=== PATIENT | female | born 1940 | race Caucasian/White ===

== ENCOUNTER 2018-02-07 17:16 | Emergency (ER) | payer OTHER ==
[2018-02-07] MEDS ORDERED: methylPREDNISolone SOD SUCC 125 MG/2 ML VIAL IVP ONE (17:24)
[2018-02-07] MEDS ORDERED: EPINEPHrine 1 MG/ML INJ IM ONE (17:24)
[2018-02-07] MEDS ORDERED: RANITIDINE 50 MG/2 ML VIAL IVP ONE (17:24)
[2018-02-07] MEDS ORDERED: NS 1,000 ML IV ONE ×2 (17:24→18:13)
[2018-02-07] MEDS ORDERED: ALBUTEROL 3 ML DEYVIAL IH ONE (17:30)
--- NOTE | 2018-02-07 17:40 | EDPHY ---
H & P Time Seen by Provider: 02/07/18 17:19 HPI/ROS: CHIEF COMPLAINT: Lightheaded HISTORY OF PRESENT ILLNESS: The patient is a 77-year-old female who comes to the emergency department via EMS for feeling lightheaded and vision changes. She reports seeing her primary doctor today for dysuria and being diagnosed with a urinary tract infection. Her states that she gets these every month or so. She was given a prescription for Macrobid. She took the 1st pill this evening at about 45 min later began feeling lightheaded. No headache. No nausea vomiting. No chest pain or shortness of breath. She felt very weak. Her called 911. When they arrived she was hypotensive. She has mild diffuse erythema. She has not had a fever recently. No back pain. She denies history of cardiac disease. 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: Severe Modifying factors: None REVIEW OF SYSTEMS: Constitutional: See HPI EENTM: denies: blurred vision, double vision, nose congestion Respiratory: denies: cough, shortness of breath Cardiac: denies: chest pain, irregular heart rate, lightheadedness, palpitations Gastrointestinal/Abdominal: denies: abdominal pain, diarrhea, nausea, vomiting, blood streaked stools Genitourinary: see HPI Musculoskeletal: denies: joint pain, muscle pain Skin: denies: lesions, rash, jaundice, bruising Neurological: denies: headache, numbness, paresthesia, tingling, dizziness, weakness Hematologic/Lymphatic: denies: blood clots, easy bleeding, easy bruising Immunologic/allergic: denies: HIV/AIDS, transplant 10 systems reviewed and negative except as noted EXAM: GENERAL: Hypotensive, in distress, HEAD: Atraumatic, normocephalic. EYES: Pupils equal round and reactive to light, extraocular movements intact, sclera anicteric, conjunctiva are normal. ENT: TMs normal, nares patent, oropharynx clear without exudates. Moist mucous membranes. NECK: Normal range of motion, supple without lymphadenopathy or JVD. LUNGS: Breath sounds clear to auscultation bilaterally and equal. No wheezes rales or rhonchi. HEART: Regular rate and rhythm without murmurs, rubs or gallops. ABDOMEN: Soft, nontender, normoactive bowel sounds. No guarding, no rebound. No masses appreciated. BACK: No CVA tenderness, no spinal tenderness, step-offs or deformities EXTREMITIES: Normal range of motion, no pitting or edema. No clubbing or cyanosis. NEUROLOGICAL: Cranial nerves II through XII grossly intact. Normal speech. 5/ 5 strength, normal movement in all extremities, normal sensation, normal reflexes PSYCH: Normal mood, normal affect. SKIN: Diffuse sandpapery erythema. No urticaria. Source: Patient, Family, EMS Exam Limitations: Clinical condition - Medical/Surgical History Hx Asthma: No Hx Chronic Respiratory Disease: No Hx Diabetes: No Hx Cardiac Disease: No Hx Renal Disease: No Hx Cirrhosis: No Hx Alcoholism: No Hx HIV/AIDS: No - Family History Significant Family History: No pertinent family hx - Social History Smoking Status: Never smoked Alcohol Use: None Drug Use: None Constitutional: Initial Vital Signs Temperature (C) 36.3 C 02/07/18 17:40 Heart Rate 75 02/07/18 17:40 Respiratory Rate 16 02/07/18 17:40 Blood Pressure 65/49 L 02/07/18 17:40 O2 Sat (%) 85 L 02/07/18 17:40 O2 Delivery Mode Room Air O2 (L/minute) 1 Allergies/Adverse Reactions: No Known Drug Allergies Allergy (Verified 02/07/18 17:46) Home Medications: Medication Instructions Recorded Aspirin 325 mg (*) 02/07/18 Cephalexin [Keflex] 500 mg PO TID #21 cap 02/07/18 EPINEPHrine [Epipen 0.3 MG] 0.3 mg IM ONCE #2 syr 02/07/18 predniSONE 60 mg PO DAILY #9 tab 02/07/18 Medical Decision Making - Diagnostics EKG Interpretation: An EKG obtained and was read and documented in trace view. Please see trace view for full reading and report. Sinus rhythm, no acute ischemic changes Imaging Results: Imaging Impressions Chest X-Ray 02/07/18 17:25 Impression: Mild peribronchial thickening could reflect airways disease. A definite fever source is not identified. Imaging: Discussed imaging studies w/ call worker Radiologist ED Course/Re-evaluation: 5:45 p.m. the patient's blood pressure is improving. Her redness is resolving particularly in her face and abdomen. She states she feels less lightheaded. Her oxygen has improved after a nebulizer. We will continue to observe. 6:15 p.m. the patient's vital signs have normalized. She is feeling completely better. We will continue to observe. 750 p.m.. The patient is doing well. She has been ambulating to the bathroom. She feels much better and is eager to go home. I told her I would like to observe her for had little longer. I also will need to start her on a different antibiotic. We are calling the pharmacy to see which antibiotics she has done well with in the past. She states that antibiotics usually work for her and she has never had 1 that does not work. She has never had any previous allergies. 8:20 p.m. patient continues to feel well. We spoke with [facility]. She has had Bactrim and amoxicillin in the past without difficulty. Will treat her with Keflex now and observe. 9:00 p.m. the patient is doing well. She has no complaints. She and her are eager to go home. She has done well with the Keflex. I will give her prescription for this as well as 1 to take in the morning. We discussed continuation of steroids and antihistamines as well as use of EpiPen if necessary. Differential Diagnosis: Partial list of the Differential diagnosis considered include but were not limited to; anaphylaxis, urinary tract infection, sepsis and although unlikely based on the history and physical exam, I also considered acute coronary disease , arrhythmia, seizure, stroke. I discussed these differential diagnoses and the plan with the patient as well as the usual and expected course. The patient understands that the diagnosis is provisional and that in medicine we are not always correct and that further workup is often warranted. Usual and customary warnings were given. All of the patient's questions were answered. The patient was instructed to return to the emergency department should the symptoms at all worsen or return, otherwise to followup with the physician as we discussed. - Data Points Laboratory Results: Laboratory Results 02/07/18 17:44 02/07/18 17:44 02/07/18 02/07/18 02/07/18 19:30 17:44 17:44 WBC RBC Hgb Hct MCV MCH MCHC RDW Plt Count MPV Neut % (Auto) Lymph % (Auto) [place] % (Auto) Eos % (Auto) Baso % (Auto) Nucleat RBC Rel Count Absolute Neuts (auto) Absolute Lymphs (auto) Absolute Monos (auto) Absolute Eos (auto) Absolute Basos (auto) Absolute Nucleated RBC Immature Gran % Immature Gran # PT INR APTT VBG Lactic Acid 1.5 mmol/L mmol/L (0.7-2.1) Sodium 136 mEq/L mEq/L (135-145) Potassium 3.5 mEq/L mEq/L (3.3-5.0) Chloride 107 mEq/L mEq/L (97-110) Carbon Dioxide 23 mEq/l mEq/l (22-31) Anion Gap 6 mEq/L mEq/L (6-14) BUN 13 mg/dL mg/dL (7-23) Creatinine 0.8 mg/dL mg/dL (0.6-1.0) Estimated GFR > 60 Glucose 121 mg/dL H mg/dL (70-100) Calcium 8.3 mg/dL L mg/dL (8.5-10.4) Total Bilirubin 0.3 mg/dL mg/dL (0.1-1.4) Urine Color YELLOW Urine Appearance MODERATELY TURBID Urine pH 6.0 (5.0-7.5) Ur Specific [place] 1.008 (1.002-1.030) Urine Protein NEGATIVE (NEGATIVE) Urine Ketones TRACE H (NEGATIVE) Urine Blood 2+ H (NEGATIVE) Urine Nitrate NEGATIVE (NEGATIVE) Urine Bilirubin NEGATIVE (NEGATIVE) Urine Urobilinogen NEGATIVE EU EU (0.2-1.0) Ur Leukocyte Esterase 3+ H (NEGATIVE) Urine RBC 5-10 /hpf H /hpf (0-3) Urine WBC 50-182 /hpf H /hpf (0-3) Ur Epithelial Cells TRACE /lpf /lpf (NONE-1+) Urine Bacteria 1+ /hpf H /hpf (NONE SEEN) Urine Mucus TRACE /lpf /lpf (NONE-1+) Urine Glucose NEGATIVE (NEGATIVE) 02/07/18 02/07/18 17:44 17:44 WBC 9.28 10^3/uL 10^3/uL (3.80-9.50) RBC 4.07 10^6/uL L 10^6/uL (4.18-5.33) Hgb 12.7 g/dL g/dL (12.6-16.3) Hct 37.7 % L % (38.0-47.0) MCV 92.6 fL fL (81.5-99.8) MCH 31.2 pg pg (27.9-34.1) MCHC 33.7 g/dL g/dL (32.4-36.7) RDW 12.9 % % (11.5-15.2) Plt Count 227 10^3/uL 10^3/uL (150-400) MPV 8.5 fL L fL (8.7-11.7) Neut % (Auto) 55.3 % % (39.3-74.2) Lymph % (Auto) 38.3 % % (15.0-45.0) [place] % (Auto) 4.5 % % (4.5-13.0) Eos % (Auto) 1.6 % % (0.6-7.6) Baso % (Auto) 0.1 % L % (0.3-1.7) Nucleat RBC Rel Count 0.0 % % (0.0-0.2) Absolute Neuts (auto) 5.13 10^3/uL 10^3/uL (1.70-6.50) Absolute Lymphs (auto) 3.55 10^3/uL H 10^3/uL (1.00-3.00) Absolute Monos (auto) 0.42 10^3/uL 10^3/uL (0.30-0.80) Absolute Eos (auto) 0.15 10^3/uL 10^3/uL (0.03-0.40) Absolute Basos (auto) 0.01 10^3/uL L 10^3/uL (0.02-0.10) Absolute Nucleated RBC 0.00 10^3/uL 10^3/uL (0-0.01) Immature Gran % 0.2 % % (0.0-1.1) Immature Gran # 0.02 10^3/uL 10^3/uL (0.00-0.10) PT 13.7 SEC SEC (12.0-15.0) INR 1.03 (0.83-1.16) APTT 28.2 SEC SEC (23.0-38.0) VBG Lactic Acid Sodium Potassium Chloride Carbon Dioxide Anion Gap BUN Creatinine Estimated GFR Glucose Calcium Total Bilirubin Urine Color Urine Appearance Urine pH Ur Specific [place] Urine Protein Urine Ketones Urine Blood Urine Nitrate Urine Bilirubin Urine Urobilinogen Ur Leukocyte Esterase Urine RBC Urine WBC Ur Epithelial Cells Urine Bacteria Urine Mucus Urine Glucose Medications Given: Discontinued Medications Albuterol (Proventil Neb) 3 ml IH EDNOW ONE Stop: 02/07/18 17:31 Last Admin: 02/07/18 17:36 Dose: 3 ml Cephalexin HCl (Keflex) 500 mg PO EDNOW ONE PRN Reason: Protocol Stop: 02/07/18 20:22 Last Admin: 02/07/18 20:43 Dose: 500 mg Diphenhydramine HCl (Benadryl Injection) 50 mg IVP EDNOW ONE Stop: 02/07/18 17:25 Last Admin: 02/07/18 17:36 Dose: 50 mg Epinephrine HCl (Epinephrine) 0.3 mg IM EDNOW ONE Stop: 02/07/18 17:25 Last Admin: 02/07/18 17:36 Dose: 0.3 mg Sodium Chloride (Ns) 1,000 mls @ 0 mls/hr IV ONCE ONE; Wide Open PRN Reason: Protocol Stop: 02/07/18 17:25 Last Admin: 02/07/18 17:37 Dose: 1,000 mls Sodium Chloride (Ns) 1,000 mls @ 200 mls/hr IV EDNOW ONE PRN Reason: Protocol Stop: 02/07/18 23:12 Last Admin: 02/07/18 18:15 Dose: 1,000 mls Methylprednisolone Sodium Succinate (Solu-Medrol) 125 mg IVP EDNOW ONE Stop: 02/07/18 17:25 Last Admin: 02/07/18 17:36 Dose: 125 mg Ranitidine HCl (Zantac) 50 mg IVP EDNOW ONE Stop: 02/07/18 17:25 Last Admin: 02/07/18 17:39 Dose: 50 mg Departure - Departure Disposition: Home, Routine, Self-Care Clinical Impression: Anaphylaxis Qualifiers: Encounter type: initial encounter Qualified Code(s): T78.2XXA - Anaphylactic shock, unspecified, initial encounter Urinary tract infection Qualifiers: Urinary tract infection type: acute cystitis Hematuria presence: without hematuria Qualified Code(s): N30.00 - Acute cystitis without hematuria Condition: Fair Instructions: Urinary Tract Infection in Women (ED), Anaphylaxis (ED), Antibiotic Medication Allergy (ED) Referrals: León Allen MD [Primary Care Provider] - As per Instructions Prescriptions: Cephalexin [Keflex] 500 mg PO TID #21 cap EPINEPHrine [Epipen 0.3 MG] 0.3 mg IM ONCE #2 syr predniSONE 60 mg PO DAILY #9 tab
--- NOTE | 2018-02-07 17:41 | CPEKG ---
Test Reason : OPEN Blood Pressure : / mmHG Vent. Rate : 082 BPM Atrial Rate : 082 BPM P-R Int : 134 ms QRS Dur : 082 ms QT Int : 401 ms P-R-T Axes : 038 027 040 degrees QTc Int : 469 ms Sinus rhythm Confirmed by Shaun Ahumada ([id number]) on 02/07/2018 5:41:07 PM Referred By: Confirmed By:Shaun Ahumada
[2018-02-07 17:56] LABS: PLATELET COUNT 227 10^3/uL (150-400)
[2018-02-07 18:04] LABS: INR 1.03 (0.83-1.16); PROTIME(PATIENT) 13.7 SEC (12.0-15.0)
[2018-02-07] MEDS ORDERED: CEPHALEXIN 500 MG CAP PO ONE (20:21)
[2018-02-07 21:18] VITALS: BP 112/88
== END 2018-02-07 21:32 | disposition home or self-care (01) ==
LOC: EDUNIT#
DX: T36.8X5A Adverse effect of other systemic antibiotics, initial encounter (principal); R42 Dizziness and giddiness; I95.9 Hypotension, unspecified; N30.00 Acute cystitis without hematuria; E86.9 Volume depletion, unspecified
CPT/HCPCS: 71046; 93005; 96361; 96372; 96374; 96375; 99285; J0171; J1200; J2780; J2930; J7613